=== PATIENT | female | born 1950 | race Caucasian/White ===

== ENCOUNTER 2023-03-04 06:44 | Day surgery (SDC) | payer OTHER, BC ==
[2023-02-25 14:30] VITALS: BMI 33.1
[2023-03-04] MEDS ORDERED: LIDOCAINE HCL/PF 2% SDV 5ML VIAL ONE (07:20)
[2023-03-04] MEDS ORDERED: PROPOFOL 120 ML ONE (07:20)
[2023-03-04 09:05] VITALS: TEMP 98
[2023-03-04 09:13] VITALS: BP 138/79; PULSE 88; RESP 18
== END 2023-03-04 09:20 | disposition home or self-care (01) ==
LOC: FASU-ENDO 06:44
PROVIDERS: ATTEND Internal Medicine Gastroenterology
PROC: 0DBH8ZX Excision of Cecum, Via Natural or Artificial Opening Endoscopic, Diagnostic (ICD-10-PCS; principal; 2023-03-04 08:24)
DX: Z12.11 Encounter for screening for malignant neoplasm of colon (principal); D12.0 Benign neoplasm of cecum; D12.4 Benign neoplasm of descending colon; K57.30 Diverticulosis of large intestine without perforation or abscess without bleeding; Z86.010 Personal history of colon polyps